=== PATIENT | male | born 1995 | race African-American/Black ===

== ENCOUNTER 2016-07-15 19:46 | Emergency (ER) | payer OTHER ==
[~2016-07-15 19:46] MED LIST: PEN-VEE K500 MG PO; PROAIR HFA8.5 GM IH; PROVENTIL HFA6.7 G1 IH; ZOFRAN ODT4 MG PO; [UNRECOGNIZED DRUG - OTHER]
[2016-07-15] MEDS ORDERED: METHOCARBAMOL500 M2 PO (22:15)
== END 2016-07-15 22:45 ==
LOC: EDMED 19:46
DX: S13.4XXA Sprain of ligaments of cervical spine, initial encounter (principal); S16.1XXA Strain of muscle, fascia and tendon at neck level, initial encounter; V49.40XA Driver injured in collision with unspecified motor vehicles in traffic accident, initial encounter; Y92.410 Unspecified street and highway as the place of occurrence of the external cause